=== PATIENT | female | born 1945 | race Caucasian/White ===

== ENCOUNTER 2016-07-21 06:58 | Day surgery (SDC) | payer OTHER, BC ==
[2016-07-20 14:27] VITALS: BMI 28.9
[2016-07-21] MEDS ORDERED: PROPOFOL 20 ML ONE ×3 (07:51)
[2016-07-21] MEDS ORDERED: LIDOCAINE HCL/PF 2% SDV 5ML VIAL ONE (07:51)
[2016-07-21 08:38] VITALS: TEMP 97.9
[2016-07-21 15:17] VITALS: BP 102/84; PULSE 57
== END 2016-07-21 09:45 | disposition home or self-care (01) ==
LOC: JASU-ENDO 06:58
PROVIDERS: ATTEND Internal Medicine Gastroenterology
PROC: 0DBL8ZX Excision of Transverse Colon, Via Natural or Artificial Opening Endoscopic, Diagnostic (ICD-10-PCS; principal; 2016-07-21 08:00)
DX: Z86.010 Personal history of colon polyps (principal); D12.3 Benign neoplasm of transverse colon; K57.30 Diverticulosis of large intestine without perforation or abscess without bleeding
CPT/HCPCS: 88305-TC